=== PATIENT | male | born 1935 | race Two or more races ===

== ENCOUNTER 2018-01-26 19:47 | Inpatient (IN) | payer MEDICAID, MEDICARE ==
[~2018-01-26] VITALS: Ht 182.9 cm; Wt 81.6 kg
[2018-01-26] MEDS ORDERED: HYDROCODONE/ACETAMINOPHEN 5/325MG TABLET PO ONE (21:15)
[2018-01-26] MEDS ORDERED: ONDANSETRON HCL 4MG/2ML INJ IV STA (23:07)
[2018-01-26] MEDS ORDERED: SODIUM CHLORIDE 0.9% 1,000 ML IV ONE (23:07)
[2018-01-26] MEDS ORDERED: MORPHINE SULFATE 4 MG/ML CPJ (NOT FOR IM USE) IV STA (23:07)
[2018-01-27 04:37] LABS: HEMATOCRIT. 29.2 % (42.0-52.0); HEMOGLOBIN. 10.3 g/dL (14.0-18.0); MEAN CORPUSCULAR HEMOGLOBIN 28.1 pg (28.0-32.0); MEAN CORPUSCULAR VOLUME 79.4 fL (80.0-94.0); PLATELET 201 x1000/uL (130-400); RED BLOOD CELL COUNT 3.68 mill/uL (4.7-6.1); RED CELL DISTRIBUTION WIDTH 14.8 % (11.6-14.6)
[2018-01-27 04:38] LABS: BASOPHILS % 0.7 % (0.0-2.0); EOSINOPHILS % 0.7 % (0.0-5.0); LYMPHOCYTES % 18.7 % (20.0-50.0); MONOCYTES % 7.9 % (2.0-8.0)
[2018-01-27 05:50] VITALS: BP 161/75
[2018-01-27 05:57] VITALS: BP 161/75
[2018-01-27] MEDS ORDERED: XALAO EACHEYE (06:06)
[2018-01-27] MEDS ORDERED: ATOR40TA70 MT (06:06)
[2018-01-27] MEDS ORDERED: LISI-604 MT (06:06)
[2018-01-27] MEDS ORDERED: GABA-290 MT (06:06)
[2018-01-27] MEDS ORDERED: OXYC-523 MT (06:06)
[2018-01-27] MEDS ORDERED: HYDR25TA MT (06:06)
[2018-01-27] MEDS ORDERED: OMEP40CA34 MT (06:06)
[2018-01-27 08:00] VITALS: BP 142/58
[2018-01-27] MEDS: HYDROCODONE/ACETAMINOPHEN 10/325MG TABLET PO PRN ×2 (09:05→13:21)
[2018-01-27] MEDS ORDERED: ACETAMINOPHEN 325MG TABLET PO PRN (11:30)
[2018-01-27] MEDS ORDERED: CLONIDINE 0.1MG TABLET PO PRN (11:30)
[2018-01-27] MEDS ORDERED: ONDANSETRON HCL 4MG/2ML INJ IV PRN (11:30)
[2018-01-27 12:34] VITALS: BP 156/58
[2018-01-27] MEDS: HYDROCHLOROTHIAZIDE 25MG TABLET PO SCH (13:20)
[2018-01-27] MEDS: GABAPENTIN 300MG CAPSULE PO SCH ×2 (13:21→21:20)
[2018-01-27] MEDS: OMEPRAZOLE 20MG CAPSULE EXTENDED RELEASE PO SCH (13:21)
[2018-01-27] MEDS: LISINOPRIL 20MG TABLET PO SCH (13:21)
[2018-01-27] MEDS: DEXT 5%/0.45% NACL KCL 10MEQ/L 1,000 ML IV SCH (13:55)
[2018-01-27 14:00] LABS: PROSTRATE SPECIFIC AG TOTAL 0.91 ng/mL (0.0-4.0)
[2018-01-27 16:41] VITALS: BP 145/64
[2018-01-27 17:25] LABS: PHOSPHORUS 2.8 mg/dL (2.5-4.9)
[2018-01-27 20:00] VITALS: BP 146/52
[2018-01-27] MEDS: LATANOPROST 0.005% OPHTH DROPS 2.5ML EACHEYE SCH (20:38)
[2018-01-27] MEDS: ATORVASTATIN CALCIUM 40MG TABLET PO SCH (20:38)
[2018-01-27] MEDS: MORPHINE SULFATE 4 MG/ML CPJ (NOT FOR IM USE) IV PRN (21:16)
[2018-01-28] VITALS (7 sets, daily range): BP systolic 118–153; BP diastolic 51–69
[2018-01-28 01:23] LABS: INR 1.2; PROTHROMBIN TIME 11.7 sec (9.1-11.1)
[2018-01-28] MEDS: HYDROCODONE/ACETAMINOPHEN 10/325MG TABLET PO PRN ×3 (02:47→22:39)
[2018-01-28] MEDS: DEXT 5%/0.45% NACL KCL 10MEQ/L 1,000 ML IV SCH ×3 (05:27→20:42)
[2018-01-28] MEDS: OMEPRAZOLE 20MG CAPSULE EXTENDED RELEASE PO SCH (06:02)
[2018-01-28] MEDS: GABAPENTIN 300MG CAPSULE PO SCH ×3 (06:02→21:10)
[2018-01-28] MEDS: MORPHINE SULFATE 4 MG/ML CPJ (NOT FOR IM USE) IV PRN (06:07)
[2018-01-28 06:27] LABS: BASOPHILS % 0.6 % (0.0-2.0); EOSINOPHILS % 0.8 % (0.0-5.0); HEMATOCRIT. 30.3 % (42.0-52.0); HEMOGLOBIN. 10.5 g/dL (14.0-18.0); LYMPHOCYTES % 27.2 % (20.0-50.0); MEAN CORPUSCULAR HEMOGLOBIN 27.7 pg (28.0-32.0); MEAN CORPUSCULAR VOLUME 80.1 fL (80.0-94.0); MEAN PLATELET VOLUME 8.4 fl (7.4-10.4); MONOCYTES % 7.7 % (2.0-8.0); NEUTROPHILS % 63.7 % (40.0-76.0); PLATELET 204 x1000/uL (130-400); RED BLOOD CELL COUNT 3.78 mill/uL (4.7-6.1); RED CELL DISTRIBUTION WIDTH 15.3 % (11.6-14.6)
[2018-01-28] MEDS: HYDROCHLOROTHIAZIDE 25MG TABLET PO SCH (09:32)
[2018-01-28] MEDS: LISINOPRIL 20MG TABLET PO SCH (09:32)
[2018-01-28] MEDS: LATANOPROST 0.005% OPHTH DROPS 2.5ML EACHEYE SCH (20:42)
[2018-01-28] MEDS: ATORVASTATIN CALCIUM 40MG TABLET PO SCH (20:42)
[2018-01-29] VITALS: BP 112/56
[2018-01-29 04:00] VITALS: BP 132/54
[2018-01-29] MEDS: GABAPENTIN 300MG CAPSULE PO SCH ×3 (05:09→21:02)
[2018-01-29] MEDS: MORPHINE SULFATE 4 MG/ML CPJ (NOT FOR IM USE) IV PRN ×3 (05:10→16:28)
[2018-01-29 06:16] LABS: BASOPHILS % 0.7 % (0.0-2.0); HEMATOCRIT. 25.6 % (42.0-52.0); LYMPHOCYTES % 25.9 % (20.0-50.0); MEAN CORPUSCULAR HEMOGLOBIN 28.1 pg (28.0-32.0); MEAN CORPUSCULAR VOLUME 79.7 fL (80.0-94.0); MEAN PLATELET VOLUME 8.1 fl (7.4-10.4); MONOCYTES % 11.8 % (2.0-8.0); NEUTROPHILS % 60.6 % (40.0-76.0); PLATELET 204 x1000/uL (130-400); RED BLOOD CELL COUNT 3.21 mill/uL (4.7-6.1); RED CELL DISTRIBUTION WIDTH 15.1 % (11.6-14.6)
[2018-01-29 08:00] VITALS: BP 126/56
[2018-01-29] MEDS: FAMOTIDINE 20MG TABLET PO SCH (09:52)
[2018-01-29] MEDS: LISINOPRIL 20MG TABLET PO SCH (09:52)
[2018-01-29] MEDS: HYDROCHLOROTHIAZIDE 25MG TABLET PO SCH (09:52)
[2018-01-29] MEDS: HYDROCODONE/ACETAMINOPHEN 10/325MG TABLET PO PRN (10:10)
[2018-01-29] MEDS: DEXT 5%/0.45% NACL KCL 10MEQ/L 1,000 ML IV SCH ×2 (11:47→21:52)
[2018-01-29 12:00] VITALS: BP 123/55
[2018-01-29 16:00] VITALS: BP 132/65
[2018-01-29 20:00] VITALS: BP_SYST 125; BP_DIAS 49; BP_DIAS 51
[2018-01-29] MEDS: LATANOPROST 0.005% OPHTH DROPS 2.5ML EACHEYE SCH (21:02)
[2018-01-29] MEDS: ATORVASTATIN CALCIUM 40MG TABLET PO SCH (21:02)
[2018-01-29] MEDS: HYDROCODONE/ACETAMINOPHEN 5/325MG TABLET PO PRN (21:15)
[2018-01-30] VITALS: BP 119/89
[2018-01-30 04:00] VITALS: BP 138/57
[2018-01-30] MEDS: HYDROCODONE/ACETAMINOPHEN 5/325MG TABLET PO PRN (05:06)
[2018-01-30] MEDS: GABAPENTIN 300MG CAPSULE PO SCH ×3 (06:08→21:15)
[2018-01-30 06:24] LABS: BASOPHILS % 0.7 % (0.0-2.0); HEMATOCRIT. 25.6 % (42.0-52.0); HEMOGLOBIN. 9.2 g/dL (14.0-18.0); MEAN CORPUSCULAR HEMOGLOBIN 28.4 pg (28.0-32.0); MEAN CORPUSCULAR VOLUME 79.4 fL (80.0-94.0); MEAN PLATELET VOLUME 8.4 fl (7.4-10.4); NEUTROPHILS % 62.3 % (40.0-76.0); PLATELET 213 x1000/uL (130-400); RED BLOOD CELL COUNT 3.23 mill/uL (4.7-6.1)
[2018-01-30 07:39] LABS: CHLORIDE 104 mEq/L (98-107)
[2018-01-30 08:00] VITALS: BP 131/54
[2018-01-30] MEDS: LISINOPRIL 20MG TABLET PO SCH (09:00)
[2018-01-30] MEDS: FAMOTIDINE 20MG TABLET PO SCH (09:00)
[2018-01-30] MEDS: MORPHINE SULFATE 4 MG/ML CPJ (NOT FOR IM USE) IV PRN ×2 (09:50→21:15)
[2018-01-30 12:00] VITALS: BP 146/59
[2018-01-30] MEDS: DEXT 5%/0.45% NACL KCL 10MEQ/L 1,000 ML IV SCH (13:33)
[2018-01-30 16:00] VITALS: BP 133/57
[2018-01-30] MEDS: HYDROCODONE/ACETAMINOPHEN 10/325MG TABLET PO PRN (17:37)
[2018-01-30 20:00] VITALS: BP 150/58
[2018-01-30] MEDS: LATANOPROST 0.005% OPHTH DROPS 2.5ML EACHEYE SCH (21:15)
[2018-01-30] MEDS: ATORVASTATIN CALCIUM 40MG TABLET PO SCH (21:15)
[2018-01-31] VITALS (8 sets, daily range): BP systolic 120–164; BP diastolic 51–77
[2018-01-31] MEDS: DEXT 5%/0.45% NACL KCL 10MEQ/L 1,000 ML IV SCH ×3 (01:46→22:09)
[2018-01-31] MEDS: GABAPENTIN 300MG CAPSULE PO SCH ×4 (05:32→22:31)
[2018-01-31 07:57] LABS: BASOPHILS % 0.7 % (0.0-2.0); EOSINOPHILS % 0.7 % (0.0-5.0); HEMATOCRIT. 25.9 % (42.0-52.0); LYMPHOCYTES % 19.3 % (20.0-50.0); MEAN CORPUSCULAR HEMOGLOBIN 27.5 pg (28.0-32.0); MEAN CORPUSCULAR VOLUME 79.5 fL (80.0-94.0); MEAN PLATELET VOLUME 8.6 fl (7.4-10.4); MONOCYTES % 11.6 % (2.0-8.0); NEUTROPHILS % 67.7 % (40.0-76.0); PLATELET 224 x1000/uL (130-400); RED BLOOD CELL COUNT 3.26 mill/uL (4.7-6.1); RED CELL DISTRIBUTION WIDTH 14.9 % (11.6-14.6)
[2018-01-31 07:59] LABS: CHLORIDE 102 mEq/L (98-107)
[2018-01-31] MEDS: FAMOTIDINE 20MG TABLET PO SCH (09:26)
[2018-01-31] MEDS: LISINOPRIL 20MG TABLET PO SCH (09:35)
[2018-01-31] MEDS: HYDROCODONE/ACETAMINOPHEN 10/325MG TABLET PO PRN (09:43)
[2018-01-31] MEDS ORDERED: MORPHINE SULFATE 4 MG/ML CPJ (NOT FOR IM USE) IV ONE (11:03)
[2018-01-31] MEDS ORDERED: KETOROLAC 30MG/ML VIAL ONE (11:04)
[2018-01-31] MEDS ORDERED: EPINEPHRINE 1:1000 1 MG/ML AMP ONE (11:04)
[2018-01-31] MEDS ORDERED: ROPIVACAINE HCL 10MG/ML 20 ML VIAL EPI ONE ×2 (11:05→12:45)
[2018-01-31] MEDS ORDERED: MORPHINE SULFATE/PF 1MG/ML 10ML AMP ONE (11:10)
[2018-01-31] MEDS ORDERED: FENTANYL CITRATE/PF 50MCG/ML 2ML VIAL ONE (12:25)
[2018-01-31] MEDS ORDERED: MIDAZOLAM HCL 2 MG/2 ML VIAL ONE (12:26)
[2018-01-31] MEDS ORDERED: EPHEDRINE SULFATE 50MG/ML VIAL ONE (12:32)
[2018-01-31] MEDS ORDERED: PHENYLEPHRINE HCL 10 MG/ML 1ML (IV VIAL) IV ONE (12:32)
[2018-01-31] MEDS ORDERED: SODIUM CHLORIDE 0.9% 10ML VIAL ONE (12:33)
[2018-01-31] MEDS ORDERED: TRANEXAMIC ACID 1,000 MG in SODIUM CHLORIDE 0.9% 100 ML IV SCH (12:45)
[2018-01-31] MEDS ORDERED: TRANEXAMIC ACID 1,000 MG/10 ML IV SCH (12:45)
[2018-01-31] MEDS ORDERED: VANCOMYCIN HCL 500 MG/VIAL ONE (13:02)
[2018-01-31] MEDS ORDERED: ROCURONIUM BROMIDE 10MG/ML VIAL 5ML IV ONE ×2 (13:19→16:19)
[2018-01-31] MEDS ORDERED: CEFAZOLIN SODIUM 1000MG/VIAL ONE (13:22)
[2018-01-31] MEDS ORDERED: BUPIVACAINE HCL/EPINEPHRINE 0.5%/0.0005 30ML ONE (15:13)
[2018-01-31] MEDS ORDERED: ONDANSETRON HCL 4MG/2ML INJ IV PRN ×2 (15:45)
[2018-01-31] MEDS ORDERED: LABETALOL 5MG/ML SYR 20 MG/4 ML SYRINGE IV PRN ×2 (15:45)
[2018-01-31] MEDS ORDERED: HYDROMORPHONE HCL/PF 2MG/ML CPJ IV PRN ×2 (15:45)
[2018-01-31] MEDS ORDERED: MEPERIDINE HCL/PF 25MG/ML CPJ IV PRN ×2 (15:45)
[2018-01-31] MEDS ORDERED: SKIN ADHESIVE 0.7 GM EA TOP ONE (17:55)
[2018-01-31] MEDS ORDERED: GLYCOPYRROLATE 0.2 MG/ML 2ML VIAL ONE ×2 (18:01→18:06)
[2018-01-31] MEDS ORDERED: NEOSTIGMINE METHYLSULFATE 1MG/ML 10 ML VIAL ONE (18:02)
[2018-01-31 20:28] LABS: HEMOGLOBIN 8.1 g/dL (14.0-18.0); MEAN CORPUSCULAR HEMOGLOBIN 27.5 pg (28.0-32.0); MEAN CORPUSCULAR VOLUME 81.2 fL (80.0-94.0); PLATELET 215 x1000/uL (130-400); RED BLOOD CELL COUNT 2.95 mill/uL (4.7-6.1); RED CELL DISTRIBUTION WIDTH 15.2 % (11.6-14.6)
[2018-01-31 20:56] LABS: HEMATOCRIT. 24.3 % (42.0-52.0); HEMOGLOBIN. 8.1 g/dL (14.0-18.0); MEAN CORPUSCULAR HEMOGLOBIN 27.3 pg (28.0-32.0); MEAN CORPUSCULAR VOLUME 81.6 fL (80.0-94.0); PLATELET 206 x1000/uL (130-400); RED BLOOD CELL COUNT 2.97 mill/uL (4.7-6.1)
[2018-01-31 21:22] LABS: PLATELET ESTIMATE NORMAL
[2018-01-31] MEDS ORDERED: MAGNESIUM 2 G PREMIX 50 ML IV NR (21:45)
[2018-01-31] MEDS: CEFAZOLIN 1000MG PREMIX 50 ML IV SCH (22:01)
[2018-01-31] MEDS: KETOROLAC 30MG/ML VIAL IV PRN (22:12)
[2018-01-31] MEDS: ATORVASTATIN CALCIUM 40MG TABLET PO SCH (22:27)
[2018-01-31] MEDS: LATANOPROST 0.005% OPHTH DROPS 2.5ML EACHEYE SCH (22:27)
[2018-01-31] MEDS ORDERED: SODIUM POLYSTYRENE SULFONATE 15 G/60 ML BOT PO NR (23:00)
[2018-02-01] VITALS (9 sets, daily range): BP systolic 122–154; BP diastolic 50–80
[2018-02-01] MEDS: CEFAZOLIN 1000MG PREMIX 50 ML IV SCH ×3 (04:00→22:11)
[2018-02-01] MEDS: KETOROLAC 30MG/ML VIAL IV PRN ×3 (04:01→16:02)
[2018-02-01] MEDS: GABAPENTIN 300MG CAPSULE PO SCH ×3 (05:57→22:41)
[2018-02-01] MEDS: FAMOTIDINE 20MG TABLET PO SCH (09:40)
[2018-02-01] MEDS: LISINOPRIL 20MG TABLET PO SCH (09:41)
[2018-02-01] MEDS: SODIUM CHLORIDE 0.9% 1,000 ML IV SCH ×2 (10:36→22:41)
[2018-02-01 10:46] LABS: BASOPHILS % 0.4 % (0.0-2.0); EOSINOPHILS % 0.3 % (0.0-5.0); HEMATOCRIT. 23.7 % (42.0-52.0); HEMOGLOBIN. 8.1 g/dL (14.0-18.0); LYMPHOCYTES % 11.2 % (20.0-50.0); MEAN CORPUSCULAR HEMOGLOBIN 27.8 pg (28.0-32.0); MEAN PLATELET VOLUME 8.5 fl (7.4-10.4); MONOCYTES % 7.7 % (2.0-8.0); NEUTROPHILS % 80.4 % (40.0-76.0); PLATELET 217 x1000/uL (130-400); RED BLOOD CELL COUNT 2.93 mill/uL (4.7-6.1); RED CELL DISTRIBUTION WIDTH 14.8 % (11.6-14.6)
[2018-02-01 11:17] LABS: CHLORIDE 106 mEq/L (98-107)
[2018-02-01] MEDS: DEXT 5%/0.45% NACL KCL 10MEQ/L 1,000 ML IV SCH (22:39)
[2018-02-01] MEDS: LATANOPROST 0.005% OPHTH DROPS 2.5ML EACHEYE SCH (22:41)
[2018-02-01] MEDS: ATORVASTATIN CALCIUM 40MG TABLET PO SCH (22:41)
[2018-02-01] MEDS ORDERED: MORPHINE SULFATE 4 MG/ML CPJ (NOT FOR IM USE) IV PRN (23:30)
[2018-02-01] MEDS ORDERED: HYDROCODONE/ACETAMINOPHEN 5/325MG TABLET PO PRN (23:45)
[2018-02-01] MEDS ORDERED: HYDROCODONE/ACETAMINOPHEN 10/325MG TABLET PO PRN (23:45)
[2018-02-02] VITALS (9 sets, daily range): BP systolic 121–148; BP diastolic 50–68
[2018-02-02] MEDS: CEFAZOLIN 1000MG PREMIX 50 ML IV SCH ×3 (05:29→20:26)
[2018-02-02] MEDS: GABAPENTIN 300MG CAPSULE PO SCH ×3 (06:08→21:14)
[2018-02-02 06:56] LABS: MEAN CORPUSCULAR HEMOGLOBIN 28.4 pg (28.0-32.0); MEAN CORPUSCULAR VOLUME 81.7 fL (80.0-94.0); MEAN PLATELET VOLUME 8.7 fl (7.4-10.4); PLATELET 160 x1000/uL (130-400); RED BLOOD CELL COUNT 2.26 mill/uL (4.7-6.1); RED CELL DISTRIBUTION WIDTH 14.9 % (11.6-14.6)
[2018-02-02 08:13] LABS: HEMATOCRIT. 18.5 % (42.0-52.0); HEMOGLOBIN. 6.4 g/dL (14.0-18.0)
[2018-02-02] MEDS: HYDROCODONE/ACETAMINOPHEN 5/325MG TABLET PO PRN ×3 (08:13→20:21)
[2018-02-02] MEDS: SODIUM CHLORIDE 0.9% 1,000 ML IV SCH (08:13)
[2018-02-02] MEDS: FAMOTIDINE 20MG TABLET PO SCH (08:13)
[2018-02-02] MEDS: LISINOPRIL 20MG TABLET PO SCH (08:13)
[2018-02-02 12:14] LABS: HEMATOCRIT 20.8 % (42.0-52.0); HEMOGLOBIN 7.2 g/dL (14.0-18.0)
[2018-02-02 15:19] LABS: PLATELET ESTIMATE NORMAL
[2018-02-02 15:59] LABS: TOTAL IRON BINDING CAPACITY 292 ug/dL (250-450)
[2018-02-02] MEDS: ATORVASTATIN CALCIUM 40MG TABLET PO SCH (20:22)
[2018-02-02] MEDS: LATANOPROST 0.005% OPHTH DROPS 2.5ML EACHEYE SCH (20:26)
[2018-02-02 20:46] LABS: HEMATOCRIT 25.3 % (42.0-52.0); HEMOGLOBIN 8.8 g/dL (14.0-18.0); MEAN CORPUSCULAR HEMOGLOBIN 28.5 pg (28.0-32.0); MEAN CORPUSCULAR VOLUME 81.6 fL (80.0-94.0); PLATELET 235 x1000/uL (130-400); RED CELL DISTRIBUTION WIDTH 15.2 % (11.6-14.6)
[2018-02-03] VITALS: BP 137/59
[2018-02-03] MEDS: HYDROCODONE/ACETAMINOPHEN 5/325MG TABLET PO PRN ×2 (02:10→06:16)
[2018-02-03 04:00] VITALS: BP 149/65
[2018-02-03] MEDS: GABAPENTIN 300MG CAPSULE PO SCH ×3 (06:16→21:54)
[2018-02-03 08:56] VITALS: BP 143/67
[2018-02-03] MEDS: FAMOTIDINE 20MG TABLET PO SCH (09:49)
[2018-02-03] MEDS: LISINOPRIL 20MG TABLET PO SCH (09:49)
[2018-02-03] MEDS ORDERED: XALAO EACHEYE (10:43)
[2018-02-03] MEDS ORDERED: FAMO20TA8 PO (10:43)
[2018-02-03] MEDS ORDERED: LISI-604 PO (10:43)
[2018-02-03] MEDS ORDERED: GABA-531 PO (10:43)
[2018-02-03] MEDS ORDERED: FERR325T23 PO (10:44)
[2018-02-03] MEDS: MORPHINE SULFATE 4 MG/ML CPJ (NOT FOR IM USE) IV PRN ×3 (11:23→23:30)
[2018-02-03 11:29] LABS: PHOSPHORUS 1.9 mg/dL (2.5-4.9)
[2018-02-03] MEDS: FERROUS SULFATE 325MG TABLET PO SCH ×2 (12:10→17:59)
[2018-02-03 16:15] VITALS: BP 156/77
[2018-02-03 20:00] VITALS: BP 161/65
[2018-02-03] MEDS: LATANOPROST 0.005% OPHTH DROPS 2.5ML EACHEYE SCH (21:54)
[2018-02-03] MEDS: ATORVASTATIN CALCIUM 40MG TABLET PO SCH (21:57)
[2018-02-04] VITALS: BP 151/70
[2018-02-04 04:00] VITALS: BP 168/78
[2018-02-04] MEDS: MORPHINE SULFATE 4 MG/ML CPJ (NOT FOR IM USE) IV PRN ×2 (05:53→11:15)
[2018-02-04] MEDS: GABAPENTIN 300MG CAPSULE PO SCH ×2 (05:54→13:41)
[2018-02-04 08:00] VITALS: BP 157/69
[2018-02-04] MEDS: LISINOPRIL 20MG TABLET PO SCH (09:32)
[2018-02-04] MEDS: FAMOTIDINE 20MG TABLET PO SCH (09:32)
[2018-02-04] MEDS: FERROUS SULFATE 325MG TABLET PO SCH ×2 (09:32→13:41)
[2018-02-04 12:00] VITALS: BP 138/60
[2018-02-04] MEDS: HYDROCODONE/ACETAMINOPHEN 5/325MG TABLET PO PRN (13:41)
[2018-02-04 16:00] VITALS: BP 146/69
== END 2018-02-04 16:57 | disposition home health service (06) | DRG 483 ==
LOC: ER 19:47 → 8WST 01-27 02:45 → EDBEDREQTM 01-27 02:52 → EDBEDREQDT 01-27 02:52 → EDBEDREQSVC 01-27 02:52 → EDBEDREQ 01-27 02:52 → ENRESERV 01-27 04:30
PROVIDERS: ADMIT Internal Medicine; ATTEND Internal Medicine
PROC: 0RRJ00Z Replacement of Right Shoulder Joint with Reverse Ball and Socket Synthetic Substitute, Open Approach (ICD-10-PCS; principal; 2018-01-31 13:00)
PROC: 30233N1 Transfusion of Nonautologous Red Blood Cells into Peripheral Vein, Percutaneous Approach (ICD-10-PCS; 2018-02-02)
DX: M84.421A Pathological fracture, right humerus, initial encounter for fracture (principal); I10 Essential (primary) hypertension; D50.9 Iron deficiency anemia, unspecified; R00.1 Bradycardia, unspecified; D63.8 Anemia in other chronic diseases classified elsewhere; M19.011 Primary osteoarthritis, right shoulder; E11.65 Type 2 diabetes mellitus with hyperglycemia; N28.9 Disorder of kidney and ureter, unspecified; J44.9 Chronic obstructive pulmonary disease, unspecified; I25.118 Atherosclerotic heart disease of native coronary artery with other forms of angina pectoris; W10.9XXA Fall (on) (from) unspecified stairs and steps, initial encounter; Y93.89 Activity, other specified; Y92.89 Other specified places as the place of occurrence of the external cause; Y99.8 Other external cause status; Z78.1 Physical restraint status; I25.2 Old myocardial infarction; Z98.61 Coronary angioplasty status; Z88.6 Allergy status to analgesic agent; Z88.2 Allergy status to sulfonamides; Z79.899 Other long term (current) drug therapy; Z87.891 Personal history of nicotine dependence; Z92.21 Personal history of antineoplastic chemotherapy; Z92.3 Personal history of irradiation; Z85.46 Personal history of malignant neoplasm of prostate
CPT/HCPCS: 36415; 71045; 73030; 73060; 73070; 73200; 76000; 80048; 80061; 82728; 83036; 83540; 83550; 83735; 84075; 84100; 84153; 84443; 85007; 85014; 85018; 85027; 86850; 86900; 86920; 88305; 88311; 93005; 93306; 96361; 96374; 96375; 97116; 97162; 97166; 97530; 99285; A4216; A4565; C1713; C1776; C1893; J0171; J0690; J1170; J1885; J2250; J2270; J2274; J2370; J2405; J2710; J2795; J3010; J3370; J3475; J3490; J7030; J7040; J7050; P9016; G0103

== ENCOUNTER 2020-01-29 14:53 | Inpatient (IN) | payer MEDICARE, MEDICAID ==
[~2020-01-29] VITALS: Ht 167.6 cm; Wt 59.9 kg
[~2020-01-29 14:53] MED LIST: ATOR40TA70 MT; FAMO20TA8 PO; FERR325T23 PO; GABA-531 PO; LISI-604 PO; XALAO EACHEYE
[2020-01-29] MEDS ORDERED: PIPERACILLIN/TAZ 3.375G PREMIX 50 ML IV ONE (15:00)
[2020-01-29] MEDS ORDERED: SODIUM CHLORIDE 0.9% 1000ML BAG (SEPSIS BOLUS) IV ONE (15:00)
[2020-01-29] MEDS ORDERED: VANCOMYCIN 1 G PREMIX 200 ML IV ONE (15:00)
[2020-01-29 15:26] LABS: BG BASE EXCESS -3.4 mmol/L (-2.0-2.0); BG CARBOXYHEMOGLOBIN 0.4 % (0.5-1.5); BG DEOXYHEMOGLOBIN 3.1 % (0.0-5.0); BG FRACTION INSPIRED OXYGEN 100; BG HCO3 ACT 20.4 mmol/L (22.0-26.0); BG METHEMOGLOBIN 0.3 % (0.0-1.5); BG OXYGEN SATURATION 96.9 % (92.0-98.5); BG OXYHEMOGLOBIN 96.2 % (94.0-97.0); BG PCO2 32.2 mmHg (35.0-45.0); BG PH 7.419 (7.350-7.450); BG PO2 106.2 mmHg (75.0-100.0); BG SAMPLE SITE RIGHT BRACHIAL; BG TOTAL HEMOGLOBIN 10.1 g/dL (12.0-18.0); BG VENT MODE MASK - NRB
[2020-01-29 15:55] LABS: CHLORIDE 94 mEq/L (98-107)
[2020-01-29 16:00] LABS: INR 1.1; PARTIAL THROMBOPLASTIN TIME 36.6 sec (23.4-31.0); PROTHROMBIN TIME 11.4 sec (9.6-11.0)
[2020-01-29 16:02] LABS: ETHANOL BLOOD < 10 mg/dL
[2020-01-29 17:35] LABS: BASOPHILS % 0.3 % (0.0-2.0); EOSINOPHILS % 0.3 % (0.0-5.0); HEMATOCRIT. 22.7 % (42.0-52.0); HEMOGLOBIN. 7.7 g/dL (14.0-18.0); LYMPHOCYTES % 12.3 % (20.0-50.0); MEAN CORPUSCULAR HEMOGLOBIN 28.1 pg (28.0-32.0); MEAN CORPUSCULAR VOLUME 83.1 fL (80.0-94.0); MEAN PLATELET VOLUME 11.4 fl (7.4-10.4); MONOCYTES % 3.6 % (2.0-8.0); NEUTROPHILS % 83.5 % (40.0-76.0); RED BLOOD CELL COUNT 2.73 mill/uL (4.7-6.1); RED CELL DISTRIBUTION WIDTH 17.3 % (11.6-14.6)
[2020-01-29 17:39] LABS: PLATELET 27 x1000/uL (130-400)
[2020-01-29] MEDS ORDERED: NOREPINEPHRINE 8 MG in DEXT 5% WATER 242 ML IV STA (18:10)
[2020-01-29] MEDS ORDERED: NOREPINEPHRINE 8 MG in SODIUM CHLORIDE 0.9% 242 ML IV STA (18:24)
[2020-01-29] MEDS ORDERED: DEXAMETHASONE 10 MG/ML VIAL IV ONE (18:45)
[2020-01-30] MEDS ORDERED: NOREPINEPHRINE 8 MG in DEXTROSE 5% WATER 250 ML IV PRN (05:15)
[2020-01-30 08:32] LABS: CHLORIDE 99 mEq/L (98-107)
[2020-01-30 08:34] LABS: BASOPHILS % 0.7 % (0.0-2.0); HEMATOCRIT. 24.2 % (42.0-52.0); HEMOGLOBIN. 8.2 g/dL (14.0-18.0); LYMPHOCYTES % 15.1 % (20.0-50.0); MEAN CORPUSCULAR VOLUME 82.3 fL (80.0-94.0); MEAN PLATELET VOLUME 10.5 fl (7.4-10.4); MONOCYTES % 1.2 % (2.0-8.0); RED BLOOD CELL COUNT 2.94 mill/uL (4.7-6.1); RED CELL DISTRIBUTION WIDTH 16.8 % (11.6-14.6)
[2020-01-30 08:35] LABS: PLATELET ESTIMATE MARKEDLY DECREASED
[2020-01-30 08:55] LABS: PLATELET 41 x1000/uL (130-400)
[2020-01-30] MEDS ORDERED: ENOXAPARIN 40MG/0.4ML SYR SUBCUT SCH (11:30)
[2020-01-30] MEDS ORDERED: IPRATROPIUM/ALBUTEROL 0.5-3(2.5)MG/3ML NEB HHN PRN (11:30)
[2020-01-30] MEDS ORDERED: ACETAMINOPHEN 325MG TABLET PO PRN (11:30)
[2020-01-30] MEDS ORDERED: ONDANSETRON HCL 4MG/2ML INJ IV PRN (11:30)
[2020-01-30] MEDS: PIPERACILLIN/TAZ 3.375G PREMIX 50 ML IV SCH ×2 (13:17→20:18)
[2020-01-30] MEDS: VANCOMYCIN 1 G PREMIX 200 ML IV NR ×2 (13:17→13:21)
[2020-01-30] MEDS: HYDROCODONE/ACETAMINOPHEN 5/325MG TABLET PO PRN (13:39)
[2020-01-30] MEDS ORDERED: DEXAMETHASONE 10 MG/ML VIAL IV NR (22:00)
[2020-01-31] MEDS: PIPERACILLIN/TAZ 3.375G PREMIX 50 ML IV SCH (04:10)
[2020-01-31 05:16] LABS: BASOPHILS % 0.3 % (0.0-2.0); HEMOGLOBIN. 8.4 g/dL (14.0-18.0); LYMPHOCYTES % 11.6 % (20.0-50.0); MEAN CORPUSCULAR HEMOGLOBIN 28.6 pg (28.0-32.0); MEAN CORPUSCULAR VOLUME 81.8 fL (80.0-94.0); MEAN PLATELET VOLUME 10.7 fl (7.4-10.4); MONOCYTES % 0.8 % (2.0-8.0); NEUTROPHILS % 87.3 % (40.0-76.0); RED BLOOD CELL COUNT 2.94 mill/uL (4.7-6.1); RED CELL DISTRIBUTION WIDTH 16.9 % (11.6-14.6)
[2020-01-31 05:19] LABS: PLATELET 49 x1000/uL (130-400)
[2020-01-31 05:24] LABS: CHLORIDE 100 mEq/L (98-107)
[2020-01-31 05:30] LABS: LDL CHOLESTEROL 44 mg/dL (5-100)
[2020-01-31 05:34] LABS: HDL CHOLESTEROL 36 mg/dL (40-59)
[2020-01-31] MEDS ORDERED: ENOXAPARIN 30MG/0.3ML SYR SUBCUT SCH (09:00)
[2020-01-31 11:39] LABS: BG BASE EXCESS -1.8 mmol/L (-2.0-2.0); BG CARBOXYHEMOGLOBIN 0.1 % (0.5-1.5); BG DEOXYHEMOGLOBIN 13.5 % (0.0-5.0); BG FRACTION INSPIRED OXYGEN 99.9; BG HCO3 ACT 21.7 mmol/L (22.0-26.0); BG METHEMOGLOBIN 0.2 % (0.0-1.5); BG OXYGEN SATURATION 86.5 % (92.0-98.5); BG OXYHEMOGLOBIN 86.2 % (94.0-97.0); BG PCO2 31.5 mmHg (35.0-45.0); BG PH 7.456 (7.350-7.450); BG PO2 52.1 mmHg (75.0-100.0); BG SAMPLE SITE RIGHT BRACHIAL; BG TOTAL HEMOGLOBIN 8.5 g/dL (12.0-18.0); BG VENT MODE MASK - NRB
[2020-01-31] MEDS ORDERED: MORPHINE SULFATE 2 MG/ML CPJ (NOT FOR IM USE) IV PRN (12:00)
[2020-01-31] MEDS ORDERED: PIPERACILLIN/TAZOBACTAM 2.25 G in DEXTROSE 5% WATER 50 ML IV SCH (12:00)
[2020-01-31] MEDS: HYDROCODONE/ACETAMINOPHEN 5/325MG TABLET PO PRN ×2 (15:27→21:59)
[2020-01-31] MEDS: FAMOTIDINE 20MG/2ML VIAL IV SCH (15:48)
[2020-01-31] MEDS: DEXAMETHASONE 10 MG/ML VIAL IV SCH (15:48)
[2020-01-31 17:19] VITALS: BP 106/52
[2020-01-31 20:00] VITALS: BP 104/52
[2020-01-31] MEDS ORDERED: EPOETIN ALFA 10000UNITS/ML VIAL SUBCUT SCH (21:00)
[2020-01-31] MEDS: EPOETIN ALFA-EPBX 10,000 UNIT/ML VIAL SUBCUT SCH (21:42)
[2020-01-31] MEDS: PIPERACILLIN/TAZOBACTAM 2.25 G in DEXTROSE 5% WATER 50 ML IV SCH (21:43)
[2020-02-01] VITALS: BP_SYST 113; BP_SYST 116; BP_DIAS 53; BP_DIAS 74
[2020-02-01] MEDS: ALBUTEROL 6.7GM HFA INHALER ORI SCH ×4 (00:40→18:00)
[2020-02-01 04:00] VITALS: BP 119/57
[2020-02-01 06:01] LABS: CHLORIDE 110 mEq/L (98-107)
[2020-02-01 06:11] LABS: BASOPHILS % 0.6 % (0.0-2.0); HEMATOCRIT. 27.9 % (42.0-52.0); HEMOGLOBIN. 9.4 g/dL (14.0-18.0); LYMPHOCYTES % 12.3 % (20.0-50.0); MEAN CORPUSCULAR HEMOGLOBIN 28.1 pg (28.0-32.0); MEAN CORPUSCULAR VOLUME 83.7 fL (80.0-94.0); MEAN PLATELET VOLUME 10.5 fl (7.4-10.4); MONOCYTES % 3.3 % (2.0-8.0); NEUTROPHILS % 83.8 % (40.0-76.0); PLATELET 52 x1000/uL (130-400); RED BLOOD CELL COUNT 3.34 mill/uL (4.7-6.1)
[2020-02-01] MEDS: PIPERACILLIN/TAZOBACTAM 2.25 G in DEXTROSE 5% WATER 50 ML IV SCH ×3 (06:31→22:07)
[2020-02-01 08:00] VITALS: BP 112/52
[2020-02-01] MEDS: FAMOTIDINE 20MG/2ML VIAL IV SCH (08:59)
[2020-02-01] MEDS ORDERED: ENOXAPARIN 80MG/0.8ML SYR SUBCUT SCH (09:00)
[2020-02-01] MEDS: DEXAMETHASONE 10 MG/ML VIAL IV SCH (09:06)
[2020-02-01 09:30] LABS: BG BASE EXCESS -1.5 mmol/L (-2.0-2.0); BG CARBOXYHEMOGLOBIN 0.3 % (0.5-1.5); BG DEOXYHEMOGLOBIN 4.4 % (0.0-5.0); BG FRACTION INSPIRED OXYGEN 100; BG METHEMOGLOBIN 0.3 % (0.0-1.5); BG OXYGEN SATURATION 95.6 % (92.0-98.5); BG PCO2 33.1 mmHg (35.0-45.0); BG PH 7.441 (7.350-7.450); BG PO2 82.7 mmHg (75.0-100.0); BG SAMPLE SITE LEFT RADIAL; BG TOTAL HEMOGLOBIN 10.8 g/dL (12.0-18.0); BG VENT MODE MASK - NRB
[2020-02-01 12:00] VITALS: BP 113/67
[2020-02-01 16:00] VITALS: BP 138/68
[2020-02-01 21:45] VITALS: BP 113/55
[2020-02-01] MEDS: HYDROCODONE/ACETAMINOPHEN 5/325MG TABLET PO PRN (22:24)
[2020-02-02] VITALS: BP 104/60
[2020-02-02] MEDS: ALBUTEROL 6.7GM HFA INHALER ORI SCH ×4 (00:33→17:28)
[2020-02-02 04:00] VITALS: BP 126/56
[2020-02-02] MEDS: PIPERACILLIN/TAZOBACTAM 2.25 G in DEXTROSE 5% WATER 50 ML IV SCH ×3 (06:22→22:41)
[2020-02-02 08:00] VITALS: BP 132/67
[2020-02-02] MEDS: DEXAMETHASONE 10 MG/ML VIAL IV SCH (08:52)
[2020-02-02] MEDS: FAMOTIDINE 20MG/2ML VIAL IV SCH (08:52)
[2020-02-02 10:49] LABS: BASOPHILS % 0.9 % (0.0-2.0); HEMATOCRIT. 27.2 % (42.0-52.0); HEMOGLOBIN. 9.1 g/dL (14.0-18.0); LYMPHOCYTES % 19.1 % (20.0-50.0); MEAN CORPUSCULAR HEMOGLOBIN 28.1 pg (28.0-32.0); MEAN CORPUSCULAR VOLUME 84.3 fL (80.0-94.0); MEAN PLATELET VOLUME 10.1 fl (7.4-10.4); MONOCYTES % 3.2 % (2.0-8.0); NEUTROPHILS % 76.8 % (40.0-76.0); PLATELET 72 x1000/uL (130-400); RED BLOOD CELL COUNT 3.22 mill/uL (4.7-6.1); RED CELL DISTRIBUTION WIDTH 17.7 % (11.6-14.6)
[2020-02-02 11:01] LABS: CHLORIDE 114 mEq/L (98-107)
[2020-02-02 12:00] VITALS: BP 147/43
[2020-02-02 16:00] VITALS: BP 118/55
[2020-02-02 20:19] VITALS: BP 129/68
[2020-02-02] MEDS: EPOETIN ALFA-EPBX 10,000 UNIT/ML VIAL SUBCUT SCH (22:42)
[2020-02-03] VITALS (7 sets, daily range): BP systolic 112–137; BP diastolic 55–78
[2020-02-03] MEDS: PIPERACILLIN/TAZOBACTAM 2.25 G in DEXTROSE 5% WATER 50 ML IV SCH ×3 (06:08→22:24)
[2020-02-03] MEDS: ALBUTEROL 6.7GM HFA INHALER ORI SCH ×5 (06:09→23:24)
[2020-02-03 08:03] LABS: CHLORIDE 114 mEq/L (98-107)
[2020-02-03 08:06] LABS: BASOPHILS % 0.4 % (0.0-2.0); HEMATOCRIT. 25.3 % (42.0-52.0); HEMOGLOBIN. 8.7 g/dL (14.0-18.0); LYMPHOCYTES % 19.6 % (20.0-50.0); MEAN CORPUSCULAR HEMOGLOBIN 28.3 pg (28.0-32.0); MEAN CORPUSCULAR VOLUME 82.7 fL (80.0-94.0); MEAN PLATELET VOLUME 10.2 fl (7.4-10.4); MONOCYTES % 2.3 % (2.0-8.0); NEUTROPHILS % 77.7 % (40.0-76.0); PLATELET 77 x1000/uL (130-400); RED BLOOD CELL COUNT 3.06 mill/uL (4.7-6.1); RED CELL DISTRIBUTION WIDTH 17.3 % (11.6-14.6)
[2020-02-03] MEDS: FAMOTIDINE 20MG/2ML VIAL IV SCH (08:26)
[2020-02-03] MEDS: DEXAMETHASONE 4MG/ML 1ML VIAL IV SCH (08:26)
[2020-02-03] MEDS: HYDROCODONE/ACETAMINOPHEN 5/325MG TABLET PO PRN ×2 (09:40→19:46)
[2020-02-04 04:00] VITALS: BP 136/72
[2020-02-04] MEDS: ALBUTEROL 6.7GM HFA INHALER ORI SCH ×2 (05:01→12:00)
[2020-02-04] MEDS: PIPERACILLIN/TAZOBACTAM 2.25 G in DEXTROSE 5% WATER 50 ML IV SCH ×3 (05:01→21:04)
[2020-02-04 05:57] LABS: BASOPHILS % 0.4 % (0.0-2.0); EOSINOPHILS % 0.4 % (0.0-5.0); HEMATOCRIT. 26.4 % (42.0-52.0); HEMOGLOBIN. 8.8 g/dL (14.0-18.0); LYMPHOCYTES % 24.9 % (20.0-50.0); MEAN CORPUSCULAR HEMOGLOBIN 27.7 pg (28.0-32.0); MEAN CORPUSCULAR VOLUME 83.5 fL (80.0-94.0); MEAN PLATELET VOLUME 10.5 fl (7.4-10.4); MONOCYTES % 2.7 % (2.0-8.0); NEUTROPHILS % 71.6 % (40.0-76.0); PLATELET 103 x1000/uL (130-400); RED BLOOD CELL COUNT 3.16 mill/uL (4.7-6.1)
[2020-02-04 07:37] LABS: CHLORIDE 110 mEq/L (98-107)
[2020-02-04 08:00] VITALS: BP 109/55
[2020-02-04] MEDS: FAMOTIDINE 20MG/2ML VIAL IV SCH (09:47)
[2020-02-04] MEDS: DEXAMETHASONE 4MG/ML 1ML VIAL IV SCH (11:16)
[2020-02-04 12:00] VITALS: BP 103/67
[2020-02-04] MEDS ORDERED: LORAZEPAM 2MG/ML CPJ IV PRN (13:45)
[2020-02-04] MEDS ORDERED: LACTULOSE 20G/30ML UDC PO PRN (13:45)
[2020-02-04] MEDS ORDERED: DIPHENHYDRAMINE 50MG/ML VIAL IV PRN (13:45)
[2020-02-04 14:29] LABS: BG BASE EXCESS -1.4 mmol/L (-2.0-2.0); BG CARBOXYHEMOGLOBIN 0.3 % (0.5-1.5); BG DEOXYHEMOGLOBIN 8.1 % (0.0-5.0); BG FRACTION INSPIRED OXYGEN 100; BG HCO3 ACT 21.3 mmol/L (22.0-26.0); BG METHEMOGLOBIN 0.3 % (0.0-1.5); BG OXYGEN SATURATION 91.9 % (92.0-98.5); BG OXYHEMOGLOBIN 91.3 % (94.0-97.0); BG PCO2 28.2 mmHg (35.0-45.0); BG PH 7.495 (7.350-7.450); BG PO2 63.1 mmHg (75.0-100.0); BG SAMPLE SITE LEFT RADIAL; BG TOTAL HEMOGLOBIN 9.2 g/dL (12.0-18.0); BG VENT MODE MASK - NRB
[2020-02-04 16:00] VITALS: BP 131/68
[2020-02-04 20:00] VITALS: BP 138/67
[2020-02-05] VITALS: BP 154/58
[2020-02-05] MEDS: ALBUTEROL 6.7GM HFA INHALER ORI SCH ×2 (00:41→05:25)
[2020-02-05 04:00] VITALS: BP 106/58
[2020-02-05 08:00] VITALS: BP 108/71
[2020-02-06] MEDS ORDERED: DEXAMETHASONE 4MG/ML 1ML VIAL IV SCH (09:00)
== END 2020-02-05 07:53 | disposition expired | DRG 177 ==
LOC: ER 15:00 → MICUSO 18:43 → 7EST 01-31 16:14
PROVIDERS: ADMIT Internal Medicine; ATTEND Internal Medicine
PROC: 06HY33Z Insertion of Infusion Device into Lower Vein, Percutaneous Approach (ICD-10-PCS; principal; 2020-01-29)
PROC: 5A1D70Z Performance of Urinary Filtration, Intermittent, Less than 6 Hours Per Day (ICD-10-PCS; 2020-01-31)
PROC: 5A1D70Z Performance of Urinary Filtration, Intermittent, Less than 6 Hours Per Day (ICD-10-PCS; 2020-02-02)
PROC: 5A1D70Z Performance of Urinary Filtration, Intermittent, Less than 6 Hours Per Day (ICD-10-PCS; 2020-02-04)
DX: U07.1 COVID-19 (principal); J96.01 Acute respiratory failure with hypoxia; N18.6 End stage renal disease; J12.89 Other viral pneumonia; E87.1 Hypo-osmolality and hyponatremia; E87.2 Acidosis; G93.40 Encephalopathy, unspecified; I13.2 Hypertensive heart and chronic kidney disease with heart failure and with stage 5 chronic kidney disease, or end stage renal disease; D61.818 Other pancytopenia; E78.5 Hyperlipidemia, unspecified; I25.10 Atherosclerotic heart disease of native coronary artery without angina pectoris; I46.9 Cardiac arrest, cause unspecified; E11.65 Type 2 diabetes mellitus with hyperglycemia; E11.22 Type 2 diabetes mellitus with diabetic chronic kidney disease; I50.9 Heart failure, unspecified; Z78.9 Other specified health status; Z85.46 Personal history of malignant neoplasm of prostate; Z22.322 Carrier or suspected carrier of Methicillin resistant Staphylococcus aureus; Z78.1 Physical restraint status; Z79.899 Other long term (current) drug therapy; Z99.2 Dependence on renal dialysis; Z88.6 Allergy status to analgesic agent; Z88.2 Allergy status to sulfonamides; D64.9 Anemia, unspecified; D69.6 Thrombocytopenia, unspecified
CPT/HCPCS: 36415; 36600; 71045; 78580; 80053; 80061; 80202; 80320; 82140; 82375; 82550; 82805; 82962; 83036; 83605; 84145; 84439; 84443; 84484; 85025; 85379; 86850; 86900; 87635; 93005; 96365; 99291; J0885; J1100; J2270; J2543; J3370; J3490; J7030; J7040; J7050; J7060; G0480